=== PATIENT | male | born 1970 | race Caucasian/White ===

== ENCOUNTER 2018-11-22 14:55 | Emergency (ER) | payer SELFPAY ==
[2018-11-22 14:57] VITALS: BP 133/90; PULSE 77; RESP 16; TEMP 36.6; O2SAT 99; BMI 26.4
--- NOTE | 2018-11-22 15:24 | EKG12_ITS ---
Test Reason : PALPITATIONS Blood Pressure : / mmHG Vent. Rate : 069 BPM Atrial Rate : 069 BPM P-R Int : 178 ms QRS Dur : 092 ms QT Int : 356 ms P-R-T Axes : 023 022 018 degrees QTc Int : 381 ms Sinus rhythm with marked sinus arrhythmia Otherwise normal ECG Confirmed by RAY HANSON, DYLAN ([id number]), photographic editor RACQUEL JIMENEZ ([id number] on 11/23/2018 2:37:33 PM Referred By: MEHNAZ Confirmed By:DYLAN BELL MD
--- NOTE | 2018-11-22 15:24 | ED.VISSUMM ---
- ER Visit Summary Date of Service: 11/22/18 Chief Complaint: Palpitations History of Present Illness: The patient is a 48 M presenting with palpitations, chest discomfort. He states this started around 2 AM. He woke up with a discomfort in his mid chest which lasted for 2 hours. He states he also has a feeling that his heart is skipping beats. He had lightheadedness without syncope. He has mild shortness of breath. He woke up again at 9 AM with the same symptoms. They have been constant all throughout the day. He denies CAD risk factors other than unknown family history. No PE/DVT risk factors. Physical Examination: Vitals are stable. Patient is afebrile. Alert no acute distress. HEENT exam is unremarkable. Neck is supple. Lungs are clear and equal bilaterally. Heart is regular rate and rhythm. Abdomen is soft nontender nondistended. Extremities are unremarkable. Skin is warm and dry. No focal neurologic deficit. Remainder of exam is unremarkable. Emergency Department Course and Treatment: Patient was given aspirin on arrival. EKG is sinus arrhythmia rate of 69 with no acute ischemic changes. D-dimer negative. CBC unremarkable. Chemistries unremarkable. Troponin is negative. Delta troponin was obtained and is negative. Chest x-ray shows no acute process. On reevaluation, patient is pain-free. He is resting comfortably. Advised to follow-up with Dr. Nagy chronic disease epidemiologist for no doc. Advised return to the ED for worsening complaints. Disposition: Discharge home Impression: Palpitations This note was generated with [employer] dictation software. It may contain incorrect words, spelling, and punctuation that were not noted in review of the chart prior to signing ED Disposition - Plan for ED Patient: Instructions: ED Palpitations Referrals: Sb Nagy III, MD [STAFF PHYSICIAN] -
--- NOTE | 2018-11-22 15:27 | ED.DCSUM_ITS ---
- ER Visit Summary Date of Service: 11/22/18 Chief Complaint: Palpitations History of Present Illness: The patient is a 48 M presenting with palpitations, chest discomfort. He states this started around 2 AM. He woke up with a discomfort in his mid chest which lasted for 2 hours. He states he also has a feeling that his heart is skipping beats. He had lightheadedness without syncope. He has mild shortness of breath. He woke up again at 9 AM with the same symptoms. They have been constant all throughout the day. He denies CAD risk factors other than unknown family history. No PE/DVT risk factors. Physical Examination: Vitals are stable. Patient is afebrile. Alert no acute distress. HEENT exam is unremarkable. Neck is supple. Lungs are clear and equal bilaterally. Heart is regular rate and rhythm. Abdomen is soft nontender nondistended. Extremities are unremarkable. Skin is warm and dry. No focal neurologic deficit. Remainder of exam is unremarkable. Emergency Department Course and Treatment: Patient was given aspirin on arrival. EKG is sinus arrhythmia rate of 69 with no acute ischemic changes. D-dimer negative. CBC unremarkable. Chemistries unremarkable. Troponin is negative. Delta troponin was obtained and is negative. Chest x-ray shows no acute process. On reevaluation, patient is pain-free. He is resting comfortably. Advised to follow-up with Dr. Nagy refrigeration person for no doc. Advised return to the ED for worsening complaints. Disposition: Discharge home Impression: Palpitations This note was generated with [employer] dictation software. It may contain incorrect words, spelling, and punctuation that were not noted in review of the chart prior to signing ED Disposition - Plan for ED Patient: Instructions: ED Palpitations Referrals: Sb Nagy III, MD [STAFF PHYSICIAN] -
[2018-11-22 15:28] VITALS: O2SAT 98
[2018-11-22] MEDS: Aspirin 81 MG TAB.CHEW 324 MG PO (15:29)
--- NOTE | 2018-11-22 15:30 | RAD_ITS ---
STUDY: X-RAY CHEST REASON FOR EXAM: Male, 48 years old. Chest pain TECHNIQUE: AP COMPARISON: None FINDINGS: EKG leads project over the chest. The lungs are clear and expanded. There is no demonstrated pleural abnormality. Normal size heart. Normal mediastinum and elisabeth. Normal visualized pulmonary arteries. Normal visualized aortic arch and descending thoracic aorta. Normal visualized thoracic spine. Normal visualized ribs, clavicles, and shoulders. There is no demonstrated abnormality of the visualized soft tissue structures of the upper abdomen. RAD/Chest 1 View (Portable) IMPRESSION: Stable, nonacute portable x-ray examination of the chest. Electronically Signed: Quincy Salvador MD at 16:17 EST , Service support ,
[2018-11-22 15:48] VITALS: BP 131/94; PULSE 75; RESP 18; O2SAT 96
[2018-11-22 15:48] LABS: Absolute Lymphocyte Count 1.74 X10^3/ul (0.83-4.51); Absolute Neutrophil Count 6.1 X10^3/uL (2.0-7.7); Basophil# 0.05 X10^3/uL; Basophil% 0.6 % (0-1); Eosinophil# 0.11 X10^3/uL; Eosinophils% 1.2 % (0-5); Hematocrit 49.1 % (40-54); Hemoglobin 16.7 g/dl (13.0-16.5); Lymphocyte # 1.74 X10^3/ul (4.0); Lymphocyte % 19.7 % (19-41); Mean Corpuscular Hgb 29.5 pg (27.0-32.0); Mean Corpuscular Volume 86.6 fL (80-94); Mean Platelet Vol. 9.2 fl (6.2-12.0); Monocyte# 0.78 X10^3/uL; Monocyte% 8.8 % (0-10); Neutrophil # 6.13 X10^3/uL (2.7-7.7); Neutrophil % 69.5 % (47-70); Platelet Count 188 K/mm3 (150-450); RBC Distribution Width CV 12.7 % (11.6-14.6); RBC Distribution Width SD 40.2 fl (35.1-43.9); Red Blood Count 5.67 M/mm3 (4.6-6.2); White Blood Count 8.8 K/mm3 (4.4-11.0)
[2018-11-22 15:49] LABS: POSITIVE COUNT NO; POSITIVE DIFFERENTIAL NO; POSITIVE MORPHOLOGY NO
[2018-11-22 15:55] LABS: D-Dimer Quantitative (DVT/PE) < 0.27 FEU/ug/m (0.27-0.49)
--- NOTE | 2018-11-22 15:55 | ED.RN ---
NO OLD EKGS ON FILE
[2018-11-22 16:02] LABS: Anion Gap 3 (5-15); BUN 17 mg/dL (7-18); BUN/Creat Ratio 13.5 RATIO (10-20); Calcium,Total 9.2 mg/dL (8.5-10.1); Chloride 107 mmol/L (98-107); Creatinine, Serum 1.26 mg/dL (0.70-1.30); EST Glomerular Filtration Rate 65 mL/min (>60); Est Glom Filt Rate - Afr Amer 79 mL/min (>60); Estimated Creatinine Clearance 79.55 ml/min; Glucose 90 mg/dL (74-106); Potassium 4.4 mmol/L (3.5-5.1); Sodium Level 140 mmol/L (136-145)
[2018-11-22 16:52] VITALS: BP 123/87; PULSE 71; RESP 18; O2SAT 95
[2018-11-22 18:00] VITALS: BP 133/87; PULSE 61; RESP 16; O2SAT 98
--- NOTE | 2018-11-22 19:22 | ED.DEP ---
ED Disposition - Plan for ED Patient: Instructions: ED Palpitations Referrals: Sb Nagy III, MD [STAFF PHYSICIAN] -
[2018-11-22 19:29] VITALS: BP 132/80; PULSE 82; RESP 17; O2SAT 97
== END 2018-11-22 19:34 | disposition home or self-care (01) ==
PROVIDERS: Emergency Provider Emergency Medicine
DX: R00.2 Palpitations (principal)
CPT/HCPCS: 36415; 71045; 80048; 84484; 85025; 85379; 93005; 99284; A4216